=== PATIENT | male | born 1955 | race Caucasian/White ===

== ENCOUNTER 2018-03-16 20:53 | Emergency (ER) | payer SELFPAY ==
[2018-03-16 21:00] VITALS: BP 183/86; BMI 30.2
--- NOTE | 2018-03-16 21:26 | DR.GENAD ---
HPI - PCP Primary Care Physician: NFD - HPI Comment HPI Comment: EYE GETTING WORSE AND RED. PATIENT DO NOT KNOW HOW IT HAPPEN. SOME DRAINAGE AND PHOTOPHOBIA PRESENT. - Complaint/Symptoms Chief Complaint Doctors Comments: FB IN LT EYE TIMES 4 DAYS. Chief Complaint:: PT STATES" I GOT SOMETHING IN MY EYE SINCE THURSDAY" PT'S LT EYE IS RED AND IRRITATED - Nurses notes reviewed Nurses Notes Review: Yes - Source History Provided: Patient - Mode of Arrival Mode of Arrival: Ambulatory - Timing Onset of Chief Complaint: 03/12/18 Came on: Suddenly - Duration Duration: Constant Duration: Days - Severity Severity: Moderate PMH - PMH Past Medical History: Yes Past Medical History: Dyslipidemia, Hypertension Past Surgical History: No Surgical History: No History - Family History History of Family Medical Conditions: Yes Family Medical History: Cancer - Social History Type of Tobacco Use: Cigarettes Does any household member use tobacco: No Alcohol Use: None Do you use any recreational Drugs:: No Lives With: Family Lives Where: Home - infectious screening In the last 2 months have you had wt loss of >10#?: NO Have you had fever, night sweats or hemotysis?: No Have you traveled outside the country in the last 6 months?: No Isolation: Standard ROS - Review of Systems Constitutional: No Symptoms Reported Eyes: Eye Pain (LT EYE), Tearing (LT EYE), Discharge (LT EYE), Photophobia (LT EYE.) ENTM: No Symptoms Reported. negative: Ear Pain, Nose Discharge, Nose Congestion , Throat Pain Respiratoy: No Symptoms Reported Cardiovascular: No Symptoms Reported Gastrointestinal/Abdominal: No Symptoms Reported Genitourinary: No Symptoms Reported Neurological: Headache Musculoskeletal: No Symptoms Reported Integumentary: No Symptoms Reported Hematologic/Lymphatic: No Symptoms Reported Endocrine: No Symptoms Reported All Other Systems: Reviewed and Negative PE - Vital Signs Vitals: Temperature 98.2 F Pulse Rate 105 Respiratory Rate 18 Blood Pressure [Left Arm] 159/79 Blood Pressure [Right Arm] 138/65 Blood Pressure 183/86 O2 Sat by Pulse Oximetry 97 - General Limitations: No Limitations General Appearance: Alert - Head Head Exam: Normal Inspection - Eyes Eye exam: PERRL, EOMI, Conjunctival Injection, Other (COENEA ABRSIONLT EYE MEDIAL ASPECT.). negative: Scleral Icterus - ENT ENT Exam: Normal External Ear Exam External Ear Exam: Normal External Inspection TM/Canal Exam: Bilateral Normal Nose Exam: Normal Nose Exam Mouth Exam: Normal Inspection Throat Exam: Normal Inspection - Neck Neck Exam: Trachea Midline - Chest Chest Inspection: Symmetric Chest Wall Rise - Respiratory Respiratory Exam: Normal Lung Sounds Bilat Respiratory Exam: Bilateral Clear to Auscultation - Cardiovascular Cardiovascular Exam: Regular Rate, Normal Rhythm, Normal Heart Sounds - Abdominal Exam Abdominal Exam: Normal Bowel Sounds, Soft. negative: Tenderness - Extremities Extremities Exam: Normal Inspection - Back Back Exam: Normal Inspection - Neurologic Neurological Exam: Alert, Oriented X3 - Psychiatric Psychiatric Exam: Normal Affect, Normal Mood - Skin Skin Exam: Normal Color MDM - Differential Diagnosis Differential Diagnosis: FB SENSATION LT EYE. CORNEA ABRSION RT EYE, CONJUNCTIVITIS LT EYE. Course - Treatment Treatment: SEE ORDERS. - Education/Counseling Education/Counseling: Patient, Education Educated On: Treatment, Diagnosis, Needs for Follow Up Procedures - Eye Procedure Eye Irrigated w/ Saline (ccs): 30 (LT EYE) Antibiotic Oinment/Drps Admin: left eye Progress: FLOURO DYE LT EYE. CORNEA ABRASION 6 AND 7 OCLOCK. - Diagnosis Discharge Problem: Conjunctivitis Qualifiers: Conjunctivitis type: acute Acute conjunctivitis type: bacterial Laterality: left Qualified Code(s): H10.32 - Unspecified acute conjunctivitis, left eye Cornea abrasion Qualifiers: Encounter type: initial encounter Laterality: left Qualified Code(s): S05.02XA - Injury of conjunctiva and corneal abrasion without foreign body, left eye, initial encounter - Discharge Plan Disposition: HOME, SELF-CARE Condition: Stable Prescriptions: [id number] (Ophth) [CORTISPORIN (ophth) EYE DROPS SUSP *] 2 drop AFFEYE Q6H #1 ea - Follow ups/Referrals Follow ups/Referrals: GAYE RICH [CONSULTING PHYSICIAN] - 03/17/18 Joce Monsalve [STAFF PHYSICIAN] - 3 days NFD,None [Primary Care Provider] - 1 day - Instructions Instructions: Bacterial Conjunctivitis, [id number]-Oivm, Corneal Abrasion
[2018-03-16] MEDS ORDERED: TETRACAINE HCL ONE (21:31)
[2018-03-16] MEDS ORDERED: FUL-GLO STRIP ONE (21:44)
[2018-03-16] MEDS ORDERED: GENTAMICIN SULF (OPHTH) AFFEYE ONE (22:07)
[2018-03-16] MEDS ORDERED: GENTAMICIN SULF (OPHTH) ONE (22:08)
== END 2018-03-16 22:25 | disposition home or self-care (01) ==
LOC: ER 21:02
DX: S05.02XA Injury of conjunctiva and corneal abrasion without foreign body, left eye, initial encounter (principal); H10.32 Unspecified acute conjunctivitis, left eye; W45.8XXA Other foreign body or object entering through skin, initial encounter
CPT/HCPCS: 99282